=== PATIENT | female | born 1990 | race Caucasian/White ===

== ENCOUNTER → 2017-01-02 | Outpatient (CLI) | payer OTHER ==
[2017-01-02 11:56] LABS: FREE T4 (FREE THYROXINE) 0.8 ng/dL (0.93-1.71)
== END ==
LOC: LAB 10:19
PROVIDERS: ATTEND Nurse Practitioner Family
DX: E03.9 Hypothyroidism, unspecified (principal); G44.209 Tension-type headache, unspecified, not intractable
CPT/HCPCS: 36415; 84439; 84443

== ENCOUNTER → 2017-03-05 | Outpatient (CLI) | payer OTHER ==
[2017-03-05 12:00] LABS: FREE T4 (FREE THYROXINE) 0.89 ng/dL (0.93-1.71)
== END ==
LOC: LAB 09:56
PROVIDERS: ATTEND Nurse Practitioner Family
DX: E03.9 Hypothyroidism, unspecified (principal)
CPT/HCPCS: 36415; 84439; 84443

== ENCOUNTER 2018-05-30 06:15 | Observation (INO) ==
[~2018-05-30 06:15] MED LIST: CefOXitin Inj 2 GM in Sodium Chloride 0.9% 100 ML IV ONE; LIDOCAINE W/ SODIUM BICARB 0.5 ML SYR SUBD ONE; Lactated Ringers 2,000 ML PRIMARY IV ONE; Nasal Sanitizer POPSWAB ampule 3 AMP (Nozin) PREOP DOSE ENOS SCH
[2018-05-30] MEDS ORDERED: LIDOCAINE W/ SODIUM BICARB 0.5 ML SYR ONE (06:16)
[2018-05-30] MEDS ORDERED: Lactated Ringers 1,000 ML PRIMARY IV ONE ×2 (06:16→09:00)
[2018-05-30] MEDS ORDERED: Sodium Chloride 0.9% 100 ML IV ONE (06:16)
[2018-05-30] MEDS: Lactated Ringers 1,000 ML PRIMARY IV SCH ×4 (06:30→22:53)
[2018-05-30 07:16] LABS: Hematocrit [HCT] 42.6 % (37.0-47.0); Hemoglobin [HGB] 14.4 g/dL (12.0-16.0)
[2018-05-30 07:21] LABS: BILIRUBIN,URINE SMALL (NEG); CLARITY,URINE CLEAR (CLEAR); COLOR,URINE YELLOW (Y); GLUCOSE, URINE (UA) NEGATIVE (NEG); OCCULT BLOOD,URINE NEGATIVE (NEG); PH,URINE 5.5 (5.0-8.5); PROTEIN,URINE TRACE mg/dl (NEG); UROBILINOGEN,URINE 0.2 EU/dL (0.2)
[2018-05-30 07:27] LABS: URINE SPECIFIC GRAVITY - MAN 1.028
[2018-05-30] MEDS ORDERED: fentaNYL Inj 250 MCG/5 ML VIAL ONE (07:31)
[2018-05-30] MEDS ORDERED: PROPOFOL 10 MG/1 ML (200 MG/20 ML) VIAL IV ONE (07:31)
[2018-05-30] MEDS ORDERED: LIDOCAINE MPF 2% - 5 ML (20 MG/1 ML) ONE (07:31)
[2018-05-30 07:32] LABS: URINE SAMPLE TYPE CLEAN CATCH URINE; URINE SPECIFIC GRAVITY - MAN 1.028
[2018-05-30] MEDS ORDERED: ROCURONIUM 10 MG/1 ML - 5 ML VIAL IVP ONE (07:33)
[2018-05-30] MEDS ORDERED: MIDAZOLAM HCL 2 MG/2 ML VIAL ONE (07:51)
[2018-05-30] MEDS ORDERED: LIDOCAINE HCL 2 % 10 ML JELLY URO-JECT TOPICAL ONE (08:06)
[2018-05-30] MEDS ORDERED: BUPIVACAINE 0.5% W/EPI MPF -30 ML VIAL IV ONE (08:06)
[2018-05-30] MEDS ORDERED: KETAMINE 100 MG/1 ML - 5 ML ONE (08:11)
[2018-05-30] MEDS ORDERED: HYDROmorphone 2 MG/1 ML ONE (08:43)
[2018-05-30] MEDS ORDERED: KETOROLAC 30 MG/1 ML VIAL ONE (08:53)
[2018-05-30] MEDS ORDERED: ONDANSETRON 4 MG/2 ML VIAL ONE (08:53)
[2018-05-30] MEDS ORDERED: Opium-Belladonna 30-16.2mg 1 EACH SUPP.RECT RECTAL ONE ×2 (08:57→08:58)
[2018-05-30] MEDS ORDERED: SUGAMMADEX SODIUM 200 MG/2 ML VIAL IV ONE (09:01)
[2018-05-30] MEDS ORDERED: ePHEDrine Inj 50 MG/ML AMP ONE ×2 (09:14→13:03)
[2018-05-30] MEDS ORDERED: LIDOCAINE HCL 2 % 10 ML JELLY URO-JECT TOPICAL PRN (09:20)
[2018-05-30] MEDS ORDERED: Ondansetron ODT Tab 8 MG TAB PO PRN (09:20)
[2018-05-30] MEDS ORDERED: IBUPROFEN 800 MG TABLET PO PRN (09:20)
--- NOTE | 2018-05-30 09:24 | OB.OP.NOTE ---
Operative Report Surgeon: Dr. Tellez Radio Time Salesperson: Doron Quiroz MD Anesthesia Type: General Anesthesia Provider: Kee Coulter CRNA Surgery Date: 05/30/18 Preoperative Diagnosis: MMR/Dysmenorrhea Postoperative Diagnosis: Same Procedure: da Yobani Hysterectomy/Bilateral Salpingectomy/Left Oophorectomy/ Cystoscopy Estimated Blood Loss (mL): 75 Fluids: 2000 ml Complications: None identified Findings at Surgery: Normal size uterus. Tubes s/p BTL with clips. Normal ovaries. Scarring of the vesicouterine junction from previous deliveries. No evidence of bowel, bladder, or ureter injury. At cysto, both ureters ejected urine and the bladder was intact. Indications for the Procedure: MMR/Dysmenorrhea Description of Procedure: See dictated operative report. Plan: Routine post op care and discharge to home.
[2018-05-30] MEDS ORDERED: fentaNYL Inj 100 MCG/2 ML VIAL IVP PRN (09:48)
[2018-05-30] MEDS ORDERED: PROMETHAZINE 25 MG/1 ML VIAL IM PRN (09:48)
[2018-05-30] MEDS ORDERED: HYDROmorphone 2 MG/1 ML IVP PRN ×2 (09:48→14:07)
[2018-05-30] MEDS ORDERED: LIDOCAINE W/ SODIUM BICARB 0.5 ML SYR SUBD PRN (09:48)
--- NOTE | 2018-05-30 09:50 | CRNA.PROGR ---
Anesthesia Time - Procedure/Recovery Time Start Date: 05/30/18 End Date: 05/30/18 Anesthesia : Time In: 07:53 Anesthesia : Time Out: 09:45 Anesthesia : Total Time: 112 - Total Anesthesia Time Total Anesthesia Time (minutes): 112 - Other Weight: 88.904 kg Height: 5 ft 2 in Body Mass Index (BMI): 35.8 Physical Status: P2 Anesthesia Type: General Anesthesia : ET
--- NOTE | 2018-05-30 09:50 | CRNA.PROGR ---
Anesthesia Recovery Phase I - Post Anesthesia Evaluation Patient's Condition on Arrival in Phase I: Stable Pain Level: 1
[2018-05-30] MEDS ORDERED: Lactated Ringers 1,000 ML PRIMARY IV SCH (10:00)
[2018-05-30] MEDS: oxyCODONE-ACETAMINOPHEN 5-325 TAB PO PRN ×4 (10:08→19:10)
[2018-05-30] MEDS ORDERED: oxyCODONE-ACETAMINOPHEN 5-325 TAB PO ONE ×2 (10:11→10:37)
[2018-05-30] MEDS ORDERED: PROMETHAZINE 25 MG/1 ML VIAL IM ONE (11:19)
[2018-05-30] MEDS ORDERED: ePHEDrine Inj 50 MG/ML AMP IM PRN (13:00)
[2018-05-30] MEDS ORDERED: DIAZEPAM 10 MG/2 ML (5 MG/1 ML) CARPUJECT IVP ONE (13:10)
[2018-05-30] MEDS: KETOROLAC 15 MG/1 ML VIAL IVP SCH ×3 (14:30→20:34)
[2018-05-30] MEDS: DOCUSATE 100 MG CAPSULE PO SCH (20:34)
[2018-05-30] MEDS ORDERED: VENLAFAXINE XR 75 MG CAP PO ONE (23:30)
[2018-05-31] MEDS: oxyCODONE-ACETAMINOPHEN 5-325 TAB PO PRN ×2 (04:09→11:03)
[2018-05-31] MEDS: KETOROLAC 15 MG/1 ML VIAL IVP SCH ×2 (04:09→09:44)
[2018-05-31] MEDS: Lactated Ringers 1,000 ML PRIMARY IV SCH (06:39)
[2018-05-31] MEDS ORDERED: Influenza 18-19 Vaccine (6mo+) 60 MCG/0.5 ML SYRINGE IM ONE (06:57)
--- NOTE | 2018-05-31 07:15 | DCSUMMARY ---
Hospitalization Summary Admit Date: 05/30/18 Discharge Date: 05/31/18 Primary Diagnosis:: MMR/Dysmenorrhea Hospital Course: The patient underwent an uncomplicated robotic hysterectomy/left oophorectomy. She was admitted for overnight observation due to remote residence and pain control issues. She was feeling much better on POD 1 and was discharged to home in good condition to f/u in 2 weeks. Exam - Vitals Vital Signs: Vital Signs Temperature 98.3 F Temperature Source Temporal Artery Scan Pulse Rate [Pulse Oximeter] 87 Pulse Rate 88 Respiratory Rate 16 Blood Pressure [Right Arm] 108/73 Blood Pressure 127/82 Pulse Ox 93 Oxygen Flow Rate 1 Oxygen Delivery Method Nasal Cannula Height 5 ft 2 in Weight 200 lb 3.2 oz
--- NOTE | 2018-05-31 07:16 | PDOC(PROG) ---
Subjective Post Op Day: 1 Pain Management: PO Castro Catheter: No Flatus: Yes Diet: Regular Ambulating: Yes Concerns / Additional Information: Pain control is much better this AM. She is ready to go home. Assesstment / Plan Assessment / Plan: POD 1, doing well. Discharge to home.
[2018-05-31] MEDS: DOCUSATE 100 MG CAPSULE PO SCH (08:07)
[2018-05-31 08:24] VITALS: BP 105/70; RESP 20; TEMP 97
[2018-05-31 08:26] VITALS: O2SAT 96
[2018-05-31] MEDS ORDERED: VENLAFAXINE XR 75 MG CAP PO SCH (09:00)
== END 2018-05-31 11:19 | disposition home or self-care (01) ==
LOC: MED/SURG 06:15 → OR 06:15
PROVIDERS: ADMIT Obstetrics & Gynecology; ATTEND Obstetrics & Gynecology